=== PATIENT | female | born 1945 | race Caucasian/White ===

== ENCOUNTER 2019-06-16 07:38 | Outpatient (CLI) | payer MEDICARE, BC ==
[~2019-06-16] VITALS: Ht 172.7 cm; Wt 122.7 kg
--- NOTE | ~2019-06-16 | HEMODYNAMI ---
PATIENT:JASS KEY MEDICAL RECORD: [id number] : 41 LOCATION:DCARMEL ADMISSION DATE: 06/16/19 Generatedon:06/16/201911:20 Patient name: JASS KEY Patient #: [id number] SSN: D OB: 1945 Date of study: 06/16/2019 Page: Of Hemodynamic Procedure Report Patient Data Patient Demographics Procedure consent was obtained First Name: JASS Gender: Female Last Name: YESI : 1945 Patient #: [id number] Age: 73 year(s) Race: Unknown Additional ID: [id number] Contact details [address]: [address] [place] [address] State: [place] City: [place] Zip code: [address] Admission Admission Data Admission Date: 06/16/2019 Admission Time: 7:38 Admit Source: Other Height (in.): 68 BSA: 2.33 (m2) Height (cm.): 172.72 BMI: 41.23 (kg/m2) Weight (lbs.): 271.17 Weight (kg.): 123 Lab Results Lab Result Date: 06/16/2019 Lab Result Time: 0:00 Biochemistry Name Units Result Min Max BUN mg/dl 24 --(----)-* 7 18 Creatinine mg/dl 0.8 --(-*--)-- 0.6 1.3 eGFR ml/min 73.51839 *-(----)-- 90 120 NONAFRICAN CBC Name Units Result Min Max Hemoglobin g/dl 13.7 --(*---)-- 13.5 17.5 Procedure Procedure Types Cath Procedure Diagnostic Procedure [facility] w/Coronaries FFR/IVUS FFR Initial Sedation Charges Moderate Sedation up to 30 minutes PCI Procedure Coronary Stent Coronary Stent Initial Procedure Description Procedure Date Procedure Date: 06/16/2019 Procedure Start Time: 10:51 Procedure End Time: 11:16 Procedure Staff Name Function Sacha Wilhelm MD Performing Physician Ananda Quinteros RT Monitor Hemant Collins RN Nurse Michelle Etienne RT Scrub Procedure Data Cath Procedure Fluoroscopy Diagnostic fluoroscopy Total fluoroscopy Time: 4.1 time: 4.1 min min Diagnostic fluoroscopy Total fluoroscopy dose: dose: 1191 mGy 1191 mGy Contrast Material Contrast Material Type Amount (ml) Isovue 300 131 Entry Location Entry Primary Successful Side Size Upsize Upsize Entry Closure Villela ccessful Closure Location (Fr) 1 (Fr) 2 (Fr) Remarks Device Remarks Radial Right 6 Fr Mechanical artery Short Compression Estimated blood loss: 10 ml Diagnostic catheters Device Type Used For End Catheter Placement DIAGNOSTIC [place] 110cm 5 Procedure Fr catheter ([id number]) Procedure Complications No complications Procedure Medications Medication Administration Route Dosage 0.9% NaCl I.V. 100 ml/hr Oxygen etCO2 Nasal cannula 2 l/min Heparin Flush Bag added to field 2 bags (1000units/500ml NS) Lidocaine 2% added to field 20 Radial Cocktail added to field 1 syringe (Verapamil 2mg/Nitro 400mcg/Heparin 1500units) Versed I.V. 2 mg Fentanyl I.V. 100 mcg Versed I.V. 1 mg Radial Cocktail I.A. 1 syringe (Verapamil 2mg/Nitro 400mcg/Heparin 1500units) Heparin Bolus I.V. 4000 units Integrilin (Bolus I.V. 11.3 ml 2mg/ml) Integrilin (Bolus wasted 8.7 ml 2mg/ml) Plavix P.O. 600 mg Hemodynamics Rest BSA: 2.33 (m2) HGB: 13.7 (g/dl) O2 Consumption: Estimated: 223.94 (ml/min) O2 Co nsumption indexed: Estimated:96.11 (ml/min/m) Heart Rate: 84 (bpm) Pressure Samples Time Site Value (mmHg) Purpose Heart Use Rate(bpm) 10:54 LV 78/42,70 Snapshot 111 10:57 AO 173/67(98) Snapshot 96 11:02 AO 175/73(116) Snapshot 97 Snapshots Pre Cath Intra NCS Post Cath Vital Signs Time Heart Resp SPO2 etCO2 NIBP (mmHg) Rhythm Pain Sedation Rate (ipm) (%) (mmHg) Status Level (bpm) 10:32:52 81 28 94 0 181/92(144) NSR 0 (11) 10(A) , No pain 10:37:13 81 21 93 26.9 171/84(128) NSR 0 (11) 10(A) , No pain 10:41:39 85 23 96 35.2 182/89(153) NSR 0 (11) 10(A) , No pain 10:46:03 81 12 91 30.7 150/82(121) NSR 0 (11) 10(A) , No pain 10:50:21 82 21 92 11.2 148/78(101) NSR 0 (11) 10(A) , No pain 10:59:22 72 20 93 34.5 198/108(146) NSR 0 (11) 10(A) , No pain 11:05:08 95 16 95 33 204/110(143) NSR 0 (11) 10(A) , No pain 11:09:46 95 25 96 33 216/106(154) NSR 0 (11) 10(A) , No pain 11:14:29 90 17 95 31.5 216/105(155) NSR 0 (11) 10(A) , No pain Medications Time Medication Route Dose Verified Delivered Reason Not es Effectiveness by by 10:34:12 0.9% NaCl I.V. 100 Hemant Hemant Per physician ml/hr Dennis Collins RN RN 10:34:23 Oxygen etCO2 2 l/min Hemant Hemant for low 02 sats Nasal Lorigan Dennis cannula RN RN 10:34:33 Heparin Flush added 2 bags Hemant Hemant used for Bag to Lorigan Lorigan procedure (1000units/500ml [facility] RN RN NS) 10:34:44 Lidocaine 2% added 20ml Hemant Hemant for local to vial Lorigan Lorigan anesthetic RN RN 10:34:54 Radial Cocktail added 1 Hemant Hemant used for (Verapamil to syringe Lorigan Lorigan procedure 2mg/Nitro field RN RN 400mcg/Heparin 1500units) 10:42:15 Versed I.V. 2 mg Hemant Hemant for sedation Dennis Collins RN RN 10:42:22 Fentanyl I.V. 100 mcg Hemant Hemant for sedation Dennis Collins RN RN 10:45:40 Versed I.V. 1 mg Hemant Hemant for sedation Dennis Collins RN RN 10:53:32 Radial Cocktail I.A. 1 Hemant Sacha for (Verapamil syringe Dennis Wilhelm MD vasodilation 2mg/Nitro RN 400mcg/Heparin 1500units) 11:06:32 Heparin Bolus I.V. 4000 Hemant Hemant for units Dennis Collins anticoagulation RN RN 11:06:50 Integrilin I.V. 11.3ml Hemant Hemant for (Bolus 2mg/ml) Dennis Collins antiplatelet RN RN therapy 11:07:36 Integrilin wasted 8.7ml Hemant Hemant to sharp's (Bolus 2mg/ml) Dennis Collins RN RN 11:15:55 Plavix P.O. 600 mg Hemant Hemant for Pinkychris Collins antiplatelet RN RN therapy Procedure Log Time Note 10:00:30 Procedure Status Elective Heart Cath (OP). 10:03:23 ACC Patient presents with Stable Angina CCS Anginal Class 1--Ordinary physical activity does not cause angina, angina occurs with strenuos, rapid, or prolonged activity.. 10:03:25 Hemant Collins RN sent for patient. Start room use. 10:03:26 Time tracking: Regular hours (M-F 7:00 - 5:00) 10:03:30 Plan of Care:Hemodynamics will remain stable., Cardiac rhythm will remain stable., Comfort level will be maintained., Respiratory function will remain adequate., Patient/ family verbilizes understanding of procedure., Procedure tolerated without complication., Recovers from procedure without complications.. 10:03:52 ACCPatient has been prescribed/administered the following anti-anginal medication within the last 2 weeks: None 10:12:56 Admit Source: Other 10:13:00 Patient Height : 68 inches 10:13:06 Patient Weight : 271.17 lbs 10:14:59 Lab Result : Hemoglobin 13.7 g/dl 10:14:59 Lab Result : eGFR NONAFRICAN 73.10648 ml/min 10:14:59 Lab Result : BUN 24 mg/dl 10:14:59 Lab Result : Creatinine 0.8 mg/dl 10:23:40 Patient received from Pre/Post Procedure Room to CCL 1 Alert and oriented. Tansferred to table in Supine position. 10:23:41 Warm blankets applied, and katherine hugger turned on for patient comfort. 10:23:42 Signed procedure consent form obtained from patient. 10:23:43 Correct patient and procedure confirmed by team. 10:23:43 ECG and BP/O2 sat monitors applied to patient. 10:31:39 Vital chart was started 10:31:40 Baseline sample Acquired. 10:31:44 Rhythm: sinus rhythm 10::46 Full Disclosure recording started 10:31:51 H&P Date Dictated: 06/15/2019 Within 30 days and on chart., H&P Addendum completed by physician on day of procedure. (MUST COMPLETE FOR ALL OUTPATIENTS). 10:32:59 Pre-procedure instructions explained to patient. 10:33:00 Pre-op teaching completed and patient verbalized understanding. 10:33:02 Family in patients room. 10:33:04 Patient NPO since Midnight. 10:33:05 Is the patient allergic to Iodine/contrast media? No. 10:33:08 Is patient on blood thinner?Yes 10:33:11 ACC The patient was administered the following blood thiners within the last 24 hours: None 10:33:13 Patient diabetic? No. 10:33:15 Patient not . Patient is over age 55. 10:33:17 Previous problem with sedation/anesthesia? No ? 10:33:18 Snore? Yes 10:33:19 Sleep apnea? No 10:33:25 Deviated septum? No 10:33:25 Opens mouth fully? Yes 10:33:26 Sticks out tongue? Yes 10:33:38 Airway obstruction? Yes CHRONIC BRONCHITIS 10:33:43 Dentures? Yes PARTIAL IN 10:33:46 Pre procedure: right dorsailis pedis pulse 1+ Palpable, but thready & weak; easily obliterated 10:33:48 Modified Ajay's test Ulnar < 7 seconds 10:33:50 Patient pain scale 0/10 ?. 10:34:00 IV patent on arrival in left forearm with 0.9% NaCl at KVO. 10:34:02 Lab results completed and on chart. 10:34:05 Right Radial & Right Groin area was prepped with chlora-prep and draped in sterile fashion 10:34:07 Alarms reviewed by R. N. 10:34:07 Sharps counted by scrub and verified by R.N. 10:34:11 Use device set Radial Dx or PCI 10:34:12 0.9% NaCl 100 ml/hr I.V. was administered by Hemant Lorigan RN; Per physician; 10:34:13 Tegaderm 4 x 4 (1626W) opened to sterile field. 10:34:13 ACIST Manifold (32008) opened to sterile field. 10:34:14 ACIST Hand Control (22372) opened to sterile field. 10:34:15 ACIST Syringe (34313) opened to sterile field. 10:34:16 Medline Cath Pack ([id number]) opened to sterile field. 10:34:16 Bag Decanter (2002S) opened to sterile field. 10:34:17 MBrace Wrist Support (578126970) opened to sterile field. 10:34:19 EMERALD Guide Wire (017-251) opened to sterile field. 10:34:22 SHEATH 6FR RAIN (6997710) opened to sterile field. 10:34:23 Oxygen 2 l/min etCO2 Nasal cannula was administered by Hemant Collins RN; for low 02 sats; 10:34:33 Heparin Flush Bag (1000units/500ml NS) 2 bags added to field was administered by Hemant Collins RN; used for procedure; 10:34:44 Lidocaine 2% 20ml vial added to field was administered by Hemant Collins RN; for local anesthetic; 10:34:54 Radial Cocktail (Verapamil 2mg/Nitro 400mcg/Heparin 1500units) 1 syringe added to field was administered by Hemant Collins RN; used for procedure; 10:41:21 --------ALL STOP TIME OUT------ 10:41:21 Final Timeout: patient, procedure, and site verified with staff and physician. All members of the team are in agreement. 10:41:24 Right Radial & Right Groin site verified by team. 10:41:29 Fire Safety Assessment: A--An alcohol-based skin anteseptic being used preoperatively., C--Open oxygen or nitrous oxide is being used., D--An ESU, laser, or fiber-optic light is being used. 10:41:32 Physical assessment completed. ASA score P 2 - A patient with mild systemic disease as per Sacha Wilhelm MD. 10:41:37 2) 60-89 Mildly reduced kidney function, and other findings (as for stage 1) point to kidney disease. 10:41:41 Maximum allowable contrast dose (3.7 X eGFR X 0.75)203 ml. 10:41:44 Sedation plan: IV Moderate Sedation Medication:Versed, Fentanyl 10:42:15 Versed 2 mg I.V. was administered by Hemant Collins RN; for sedation; 10:42:22 Fentanyl 100 mcg I.V. was administered by Hemant Collins RN; for sedation; 10:45:40 Versed 1 mg I.V. was administered by Hemant Collins RN; for sedation; 10:51:33 Procedure started. 10:51:38 Local anesthetic to right radial artery with Lidocaine 2% by Sacha Wilhelm MD.INITIAL ACCESS ONLY 10:53:11 A 6 Fr Short sheath was inserted into the Right Radial artery 10:53:27 A DIAGNOSTIC [place] 110cm 5 Fr catheter ([id number]) was advanced over the wire and used for Procedure. 10:53:32 Radial Cocktail (Verapamil 2mg/Nitro 400mcg/Heparin 1500units) 1 syringe I.A. was administered by Sacha Wilhelm MD; for vasodilation; 10:54:43 LV angiography performed. 10:54:44 LV gram done using KEYES 10:54:50 EF : 65 % 10:54:55 Injector settings: Ml/sec: 5, Volume: 15, 10:55:10 RCA angiography performed. 10:56:19 Catheter exchanged over wire. 10:57:00 GUIDE 6FR EBU 3.5 catheter ([id number]) opened to sterile field. 10:57:11 6 Fr EBU 3.5 guide catheter was inserted over the wire 10:57:38 LCA angiography performed. 10:57:58 Use device set [facility] PCI 10:58:00 ACCDominant side:Right 11:01:41 [place] Verrata Plus pressure wire (10939O) opened to sterile field. 11:01:44 INFLATOR Merit BasixCompak (SX1773) opened to sterile field. 11:02:33 FFR/IFR wire advanced. 11:03:24 Wire advanced across lesion. 11:04:39 mLAD lesion measured at 0.62 with IFR 11:05:45 ACC Pre-intervention SIOMARA Flow is 3. 11:05:52 Pre PCI Site: [place] mLAD has 80% stenosis. 11:06:32 Heparin Bolus 4000 units I.V. was administered by Hemant Collins RN; for anticoagulation; 11:06:50 Integrilin (Bolus 2mg/ml) 11.3ml I.V. was administered by Hemant Collins RN; for antiplatelet therapy; 11:07:20 Place stent Inflation Number: 1 A MARIAN RX 2.0 x 8 stent ([id number]) was prepped and advanced across the Mid LAD 80. The stent was deployed at 15 NIKOLE for 0:10 (min:sec) 0. 11:07:36 Integrilin (Bolus 2mg/ml) 8.7ml wasted was administered by Hemant Collins RN; to sharp's; 11:07:53 ACC Post-intervention SIOMARA Flow is 3. 11:08:02 Post PCI Site: [place] mLAD has 0% stenosis. 11:08:09 Stent catheter was removed intact over wire. 11:08:10 Wire removed. 11:08:10 Guide catheter removed. 11:09:31 ZEPHYR REGULAR TR BAND (166013) opened to sterile field. 11:09:46 Sheath removed intact; hemostasis achieved with Mechanical Compression to the Right Radial artery. 11:10:10 Procedure ended.(Physican Out) 11:11:08 Fluoroscopy time 04.10 minutes. 11:11:12 Fluoroscopy dose: 1191 mGy 11:11:12 Flurop Dose total: 1191 11:11:16 Dose Area Product 31861 mGy/cm. 11:11:19 Contrast amount:Isovue 300 131ml. 11:11:21 Maximum allowable dose exceeded? No. 11:11:22 Sharps counted by scrub and verified by R.N. 11:11:24 Insertion/operative site no bleeding no hematoma. 11:11:31 Post Procedure Pulses reassessed and unchanged 11:11:34 [place] band inflated with 10cc of air. 11:11:37 Post-procedure physical assessment completed. ASA score P 2 - A patient with mild systemic disease as per Sacha Wilhelm MD. 11:11:40 Post procedure rhythm: unchanged. 11:11:43 Estimated blood loss: 10 ml 11:11:44 Post procedure instruction explained to patient.Patient verbalizes understanding. 11:11:45 Patient needs reinforcement of post procedure teaching. 11:14:05 Procedure type changed to Cath procedure, Diagnostic procedure, LHC, [facility] w/Coronaries, FFR/IVUS, FFR Initial, Sedation Charges, Moderate Sedation up to 30 minutes, PCI procedure, Coronary Stent, Coronary Stent Initial 11:14:14 Procedure and supply charges have been captured, reviewed, submitted and are correct. 11:14:17 Procedure Complication : No complications 11:15:55 Plavix 600 mg P.O. was administered by Hemant Collins RN; for antiplatelet therapy; 11:16:38 Vital chart was stopped 11:16:38 See physician's report for complete and final results. 11:16:42 Report given to Pre/Post Procedure Room. 11:16:49 Patient transfered to Pre/Post Procedure Room with Stretcher. 11:16:51 Procedure ended. 11:16:51 Full Disclosure recording stopped 11:18:16 ACT drawn and resulted at 275 seconds. (normal therapeutic range 180-240 seconds). 11:19:12 End room use (Document Last) 11:19:24 End room use (Document Last) Intervention Summary Intervention Notes Time ActionType Lesion and Equipment Used Action# Pressure Duration Attributes 11:07:20 Place stent Mid LAD MARIAN RX 2.0 x 1 15 00:10 8 stent ([id number]) Device Usage Item Name Manufacture Quantity Catalog Hospital Part Current Minimal Lot# / Number Charge Number Stock Stock Serial# Code Tegaderm 4 x 4 3M 1 1626W 546802 448012 173833 5 (1626W) ACIST Manifold Acist 1 78730 345797 098795 891849 5 (30944) Medical Systems Inc ACIST Hand Acist 1 22019 168826 923463 303375 5 Control Medical (51668) Systems Inc ACIST Syringe Acist 1 18852 709813 624575 301332 20 (93183) Medical Systems Inc Medline Cath Medline 1 [id number] 399083 27698 463860 5 Pack ([id number]) Bag Decanter Microtek 1 2001S 762613 20709 232682 5 (2001S) Medical Inc. MBrace Wrist Advanced 1 140-0250-00 747758 40259 862934 5 Support Vascular (314676961) Dynamics EMERALD Guide Cardinal 1 192-116 796547 759064 868219 5 Wire (358-576) Health SHEATH 6FR Cardinal 1 7132344 142584 7652425 058132 5 RAIN (4068150) Health DIAGNOSTIC Terumo 1 99-0473 696647 432614 513026 5 [place] 110cm 5 Fr catheter (210895) GUIDE 6FR EBU Medtronic 1 [id number] 431783 71351 348692 3 3.5 catheter ([id number]) [place] 1 10602Q 351329 008116900 208516 5 Verrata Plus pressure wire (51208X) INFLATOR Merit Merit 1 LY8859 793667 082958 558984 15 [employer] Medical (FH1471) MARIAN RX 2.0 x Medtronic 1 [id number] 813881 3725210 132629 5 [id number] 8 stent ([id number]) ZEPHYR REGULAR Cardinal 1 287630 651645 9894095 756451 5 [facility] AdTapsy (030911) Signature Audit Thida Stage Time Signature Unsigned Intra-Procedure 06/16/2019 Hemant 11:14:05 AM Dennis DICKSON Intra-Procedure 06/16/2019 Ananda Quinteros 11:19:24 AM RT(R) Intra-Procedure 06/16/2019 Sacha Wilhelm 11:20:11 AM [facility] [address] [place] [address]
[2019-06-16] MEDS ORDERED: LEVOTHYROXINE150 MCG PO (08:09)
[2019-06-16] MEDS ORDERED: ZOLOFT100 MG PO (08:10)
[2019-06-16] MEDS ORDERED: LOTENSIN40 MG PO (08:10)
[2019-06-16] MEDS ORDERED: SINGULAIR10 MG PO ×2 (08:10→08:13)
[2019-06-16] MEDS ORDERED: ULTRAM50 MG PO (08:11)
[2019-06-16] MEDS ORDERED: TOPAMAX50 MG PO (08:11)
[2019-06-16] MEDS ORDERED: FLUTICASONE PRO16 GM NASAL (08:11)
[2019-06-16] MEDS ORDERED: BAYER CHEWABLE81 MG PO (08:12)
[2019-06-16] MEDS ORDERED: SYNTHROID150 MCG PO (08:12)
[2019-06-16] MEDS ORDERED: OMEPRAZOLE20 M1 PO (08:13)
[2019-06-16] MEDS ORDERED: CLARITIN 10 MG10 MG PO (08:13)
[2019-06-16] MEDS ORDERED: FISH OIL 1,0001 CA1 PO (08:14)
[2019-06-16 08:30] VITALS: BP 168/72; Ht 172.7 cm; Wt 122.7 kg
[2019-06-16 08:31] LABS: BASOPHILS 0.3 % (0-2); EOSINOPHILS 3.1 % (0-7); HEMOGLOBIN 13.7 g/dL (12-16); IMMATURE GRANULOCYTES 0.3 % (0-5); LYMPHOCYTES 37.5 % (15-50); MCH 29.3 pg (26.0-34.0); MCHC 33.4 g/dL (31.0-37.0); MCV 87.8 fL (80.0-100.0); MEAN PLATELET VOLUME 10.7 fL (7.4-10.4); MONOCYTES 5.6 % (2-11); NEUTROPHILS 53.2 % (40-80); PLATELET COUNT 188 10x3/uL (130-400); RBC 4.67 10x6/uL (4.00-5.40); RDW 14.6 % (11.5-14.5); WBC 6.4 10x3/uL (4.8-10.8)
[2019-06-16 08:43] LABS: ANION GAP 16.8 mmol/L (8-16); CALCIUM 9.3 mg/dL (8.5-10.1); CARBON DIOXIDE 20.7 mmol/L (21.0-32.0); CHOL - HDL RATIO 4.7 ratio (2.3-4.1); CREATININE - SERUM 0.8 mg/dL (0.6-1.3); LDL-HDL RATIO 3.3 ratio (1.5-3.5)
[2019-06-16 08:46] LABS: POTASSIUM - SERUM 4.5 mmol/L (3.5-5.1)
--- NOTE | 2019-06-16 11:32 | NUR ---
PT ARRIVED BY STRETCHER. PLACED ON MONITOR. ASSESSMENT COMPLETED. VSS.
[2019-06-16] MEDS ORDERED: PLAVIX75 MG PO (11:43)
--- NOTE | 2019-06-16 11:50 | NUR ---
RIGHT WRIST Z BAND IN PLACE. NO BLEEDING AND HEMATOMA IS STABLE. VSS. CAP REFILL TO RIGHT HAND < 3 SECS. TOLERATING WELL.
--- NOTE | 2019-06-16 12:20 | NUR ---
RIGHT WRIST Z BAND IN PLACE. NO BLEEDING NOTED. HEMATOMA GETTING SOFTER. VSS. RESTING COMFORTABLY AT THIS TIME.
--- NOTE | 2019-06-16 12:50 | NUR ---
RIGHT WRIST Z BAND IN PLACE. NO NEW BLEEDING NOTED. CAP REFILL TO RIGHT FINGERS < 3 SECS. WARM TO TOUCH. VSS. PT RESTING COMFORTABLY AT THIS TIME.
--- NOTE | 2019-06-16 13:38 | OP ---
PATIENT NAME: JASS KEY MEDICAL RECORD: [id number] :41 LOCATION:D.CAT ADMISSION DATE: SURGEON: ERLIN DOE MD DATE OF OPERATION: 06/16/2019 PROCEDURES: 1. PTCA stent LAD. 2. IFR. 3. Left heart catheterization. 4. Selective coronary angiography. 5. Left ventriculogram. INDICATION: Angina, coronary artery disease, abnormal nuclear stress test. PROCEDURE IN DETAIL: After informed consent was obtained and after a detailed description of the risks, benefits as well as alternative therapies, the patient elected to proceed with angiogram and angioplasty. The right radial area was prepped and draped in normal sterile fashion. Right radial artery was cannulated via modified Seldinger technique with placement of 6-Mauritian sheath. All catheters exchanged through this sheath. FINDINGS: Left ventriculogram was performed in standard 30-degree KEYES view, reveals good cardiac wall motion throughout all segments. Overall ejection fraction estimated at 65%. SELECTIVE CORONARY ANGIOGRAPHY: 1. Left main has no significant angiographic disease. 2. Left anterior descending has 80% stenosis in the mid vessel. IFR was abnormal at 0.62. This correlates as well with the defect on nuclear stress testing. 3. Left circumflex has moderate irregularities, but no flow-limiting stenosis. 4. Right coronary has moderate irregularities, but no flow-limiting stenosis. PTCA STENT OF THE LAD: The stent used was 2.0 x 8 mm Stephan taken to 15 atmospheres. Result was 0% residual stenosis. OVERALL IMPRESSION: Successful percutaneous transluminal coronary angioplasty stent of the left anterior descending going from 80% initial stenosis to 0% residual. TRANSINT:[id number] Voice Confirmation ID: [id number] DOCUMENT ID: [id number] ERLIN DOE MD at 1338 CC: [id number] DICTATION DATE: 06/16/19 1112 GIZZARD SKIN REMOVER: 06/16/19 1152 [address] [place] [id number] [place] [id number]
--- NOTE | 2019-06-16 13:40 | NUR ---
PT HEAD OF BED AT 45 DEGREES. SET UP WITH SANDWICH TRAY AND DRINK. DENIES NAUSEA. RIGHT WRIST Z BAND IN PLACE. NO NEW BLEEDING NOTED.
--- NOTE | 2019-06-16 14:05 | NUR ---
2cc OF AIR REMOVED FROM Z BAND. TOLERATING WELL. BRUISING NOTED TO RIGHT WRIST FROM HEMATOMA. NO NEW BLEEDING NOTED. VSS. FAMILY AT BEDSIDE. PT TOLERATED FOOD AND DRINK. DENIES NAUSEA AND PAIN.
--- NOTE | 2019-06-16 14:20 | NUR ---
2cc OF AIR REMOVED FROM Z BAND. NO NEW BLEEDING NOTED. VSS. PT TOLERATING WELL.
--- NOTE | 2019-06-16 14:35 | NUR ---
3cc OF AIR REMOVED FROM Z BAND. NO NEW BLEEDING NOTED. TOLERATING WELL.
--- NOTE | 2019-06-16 14:53 | NUR ---
4cc OF AIR REMOVED FROM Z BAND. NO NEW BLEEDING NOTED. TOLERATING WELL. VSS. FAMILY AT BEDSIDE. CALL LIGHT WITHIN REACH.
--- NOTE | 2019-06-16 15:00 | NUR ---
3cc OF AIR REMOVED FROM Z BAND. TOLERATED WELL. NO NEW BLEEDING NOTED. PIV D/C'D WITH CATH TIP INTACT. TOLERATED WELL. VSS. PT INSTRUCTED TO GET UP AND DRESSED. FAMILY AT BEDSIDE TO ASSIST.
--- NOTE | 2019-06-16 15:05 | NUR ---
Z BAND REMOVED. DRESSING APPLIED. NO NEW BLEEDING NOTED. RIGHT WRIST BRACE IN PLACE.
--- NOTE | 2019-06-16 15:20 | NUR ---
PT TO RESTROOM. VOIDED WITHOUT DIFFICULTY. BACK TO ROOM. DISCUSSED DISCHARGE INSTRUCTIONS WITH PT AND PT'S FAMILY. THEY VOICED UNDERSTANDING. RIGHT WRIST BRUISING NOTED, BUT NO NEW SWELLING/BRUISING. DRESSING C/D/I. RIGHT WRIST BRACE IN PLACE.
--- NOTE | 2019-06-16 15:30 | NUR ---
PT TAKEN OUT TO VEHICLE BY WHEELCHAIR. NO S/S OF DISTRESS NOTED. ALL BELONGINGS AND PAPERWORK IN HAND.
== END 2019-06-16 15:30 | disposition home or self-care (01) ==
LOC: D.CATH 07:38
PROVIDERS: ATTEND Internal Medicine Interventional Cardiology
DX: I25.119 Atherosclerotic heart disease of native coronary artery with unspecified angina pectoris (principal); R94.30 Abnormal result of cardiovascular function study, unspecified
CPT/HCPCS: 93458; 93571; C9600

== ENCOUNTER 2019-12-07 01:16 | Inpatient (IN) | payer MEDICARE, BC ==
[~2019-12-07] VITALS: Ht 172.7 cm; Wt 115.9 kg
[2019-12-07] VITALS (9 sets, daily range): BP systolic 107–179; BP diastolic 40–73; Ht 172.7 cm; Wt 115.9 kg
[~2019-12-07 01:16] MED LIST: BAYER CHEWABLE81 MG PO; CLARITIN 10 MG10 MG PO; FISH OIL 1,0001 CA1 PO; FLUTICASONE PRO16 GM NASAL; LEVOTHYROXINE150 MCG PO; LOTENSIN40 MG PO; OMEPRAZOLE20 M1 PO; PLAVIX75 MG PO; SINGULAIR10 MG PO; SYNTHROID150 MCG PO; TOPAMAX50 MG PO; ULTRAM50 MG PO; ZOLOFT100 MG PO
[2019-12-07 02:10] LABS: BASOPHILS 0.2 % (0-2); EOSINOPHILS 0.5 % (0-7); HEMATOCRIT 38.5 % (36.0-48.0); IMMATURE GRANULOCYTES 0.7 % (0-5); LYMPHOCYTES 13.1 % (15-50); MCHC 31.2 g/dL (31.0-37.0); MEAN PLATELET VOLUME 10.8 fL (7.4-10.4); NEUTROPHILS 79.5 % (40-80); PLATELET COUNT 190 10x3/uL (130-400); RBC 4.14 10x6/uL (4.00-5.40); RDW 15.3 % (11.5-14.5); WBC 10.9 10x3/uL (4.8-10.8)
[2019-12-07 02:19] LABS: APTT 32.5 SECONDS (22.8-39.4); INR 1.3 (0.85-1.17); PROTIME 16.1 SECONDS (11.6-15.0)
[2019-12-07 02:21] LABS: CALC OSMOLALITY 298 mosm/kg (275-300); CALCIUM 8.4 mg/dL (8.5-10.1); CARBON DIOXIDE 22.6 mmol/L (21.0-32.0); CHLORIDE - SERUM 111 mmol/L (98-107); CREATININE - SERUM 1.3 mg/dL (0.6-1.3); GLUCOSE 151 mg/dL (74-106); POTASSIUM - SERUM 4.3 mmol/L (3.5-5.1); SODIUM 146 mmol/L (136-145); UREA NITROGEN 26 mg/dL (7-18); eGFR NON AFRICAN AMERICAN 42 mL/min (90-120)
--- NOTE | 2019-12-07 02:40 | NUR ---
INDWELLING FLORES CATHETER 16FR INSERTED WITH NO DIFFICULTY. STERILE FIELD MAINTAINED. STAT LOCK SECURED TO RIGHT INNER THIGH. 150CC CLEAR, YELLOW URINE AT INSERTING. PT TOLERATED WELL. WILL CONTINUE TO MONITOR.
[2019-12-07 02:42] LABS: ALBUMIN 3.4 g/dL (3.4-5.0); ALKALINE PHOSPHATASE 72 U/L (30-120); ALT (SGPT) 58 U/L (10-68); BILIRUBIN - TOTAL 0.75 mg/dL (0.2-1.3); CKMB 1.3 U/L (0.0-3.6); CREATINE KINASE 49 UL (21-215); PROTEIN - SERUM 6.9 g/dL (6.4-8.2)
[2019-12-07 02:43] LABS: TROPONIN-I 0.103 ng/mL (0.000-0.060)
--- NOTE | 2019-12-07 02:43 | NUR ---
TROPONIN 0.103 EFP INFORMED
[2019-12-07] MEDS ORDERED: BYSTOLIC5 MG PO (03:11)
[2019-12-07] MEDS ORDERED: BETAPACE 80 MG80 MG PO (03:12)
[2019-12-07] MEDS ORDERED: XARELTO20 MG PO (03:13)
--- NOTE | 2019-12-07 04:30 | NUR ---
TO ROOM 39 VIA STRETCHER AND SOON TO BIPAP IV SL TO RT WRIST BED LOW AND LOCKED CALL LIGHT GIVEN TO PT AND TELE APPLIED
--- NOTE | 2019-12-07 05:09 | NUR ---
ADMISSION ASSESSMENT COMPLETED.
[2019-12-07 11:24] LABS: BACTERIA FEW /hpf (NEGATIVE); BILIRUBIN NEGATIVE (NEGATIVE); EPITHELIAL CELLS RARE /hpf (0-5); GLUCOSE NEGATIVE (NEGATIVE); KETONE NEGATIVE (NEGATIVE); NITRITE NEGATIVE (NEGATIVE); RED CELLS - URINE OCC /hpf (0-5); UROBILINOGEN NORMAL (NORMAL); WHITE CELLS - URINE RARE /hpf (NEGATIVE)
--- NOTE | 2019-12-07 13:48 | NUR ---
OT NOTE ADDENDUM: COMPLETED INITIAL EVAL ; RECOMMEND OT SERVICES TO IMPROVE STRNEGTH, ENDURANCE, AND ADLS. LILLIAN SHAHID, OTR/L [phone]
--- NOTE | 2019-12-07 14:55 | NUR ---
PT LYING IN BED. WATCHING TV. FAMILY MEMBER AT BEDSIDE. PT STATES SHE HAS NO FURTHER NEEDS AT THIS TIME. EMPTIED 650ML OUT OF FLORES BAG. BED LOW. CL IN REACH. WILL COTNINUE TO MONITOR.
--- NOTE | 2019-12-07 15:58 | NUR ---
I have reviewed this patient and I concur with the Shift Assessment completed by the Licensed Practical Nurse today this shift.
--- NOTE | 2019-12-07 19:43 | NUR ---
RECEIVED UP IN BED WITH EYES OPEN. ALERT AND ORIENTED X4. UP WITH ASSIST. PT STATES SHE IS ABLE TO AMBULATE WITH OUT ASSIST. IV TO RT AC WITH NS AT TKO. PUMP GOING OFF OFTEN. REQUEST IV BE MOVED. NO EDEMA TO LOWER EXTREMITIES. F/C PATENT WITH CLEAR YELLOW URINE DRAINING TO BEDSIDE DRAINAGE BAG. TELEMETRY IN PLACE. O2@ 7 LITERS PER HF N/C. DENIES ANY NEEDS AT THIS TIME.
--- NOTE | 2019-12-07 21:41 | NUR ---
REQUESTED IV BE MOVED FROM RT AC. 20GA STARTED TO LT HAND X1 ATTEMPT BY MARIO DICKSON. ATTEMPTS X3 BY THIS NURSE UNSUCESSFUL.
--- NOTE | 2019-12-07 21:50 | NUR ---
ASSUMED PT CARE AT THIS TIME. PT AAOX3. TEMP 99.4. PT PLACED ON BIPAP. PT DENIES ANY FURTHER NEEDS AT THIS TIME. WILL CPOC. CL WITHIN REACH.
[2019-12-08] VITALS: BP 126/62
[2019-12-08 04:00] VITALS: BP 135/56
[2019-12-08 05:39] LABS: BASOPHILS 0.3 % (0-2); EOSINOPHILS 2.2 % (0-7); HEMATOCRIT 36.6 % (36.0-48.0); HEMOGLOBIN 11.3 g/dL (12-16); IMMATURE GRANULOCYTES 0.2 % (0-5); LYMPHOCYTES 21.4 % (15-50); MCH 28.8 pg (26.0-34.0); MCHC 30.9 g/dL (31.0-37.0); MCV 93.1 fL (80.0-100.0); MONOCYTES 10.1 % (2-11); NEUTROPHILS 65.8 % (40-80); PLATELET COUNT 200 10x3/uL (130-400); RBC 3.93 10x6/uL (4.00-5.40); RDW 15.2 % (11.5-14.5); WBC 9.6 10x3/uL (4.8-10.8)
[2019-12-08 06:29] LABS: ANION GAP 12.6 mmol/L (8-16); CALCIUM 8.2 mg/dL (8.5-10.1); CARBON DIOXIDE 26.5 mmol/L (21.0-32.0); CREATININE - SERUM 1.2 mg/dL (0.6-1.3)
[2019-12-08 06:49] LABS: POTASSIUM - SERUM 3.1 mmol/L (3.5-5.1)
[2019-12-08 09:41] VITALS: BP 127/55
[2019-12-08 12:47] VITALS: BP 128/64
--- NOTE | 2019-12-08 12:58 | NUR ---
RESTS IN BED WITH CALL LIGHT IN REACH. RESP UL ON 02 4L NC. FLORES CATH INTACT AND PATENT TO GRAVITY. DAUGHTER AT BS. WILL CONT. PLAN OF CARE.
--- NOTE | 2019-12-08 15:25 | NUR ---
OT NOTE: PT DOING BETTER TODAY. BED MOB WITH SBA; ABLE TO AMB TO AND FROM BATHROOM WITH SBA AND NO AD; TOILETING AND HYGIENE WITH SPV. AMB INTO HALLWAY TO IMPROVE FUNCTIONAL ENDURANCE X APPROX 100+ FT WITH USE OF 02. BACK TO BED WITHOUT ASSIST. LILLIAN SHAHID, OTR/L [phone]
--- NOTE | 2019-12-08 19:28 | NUR ---
REPORT RECEIVED, WILL CONT POC. PATIENT IS AAOX4, LYING IN SEMI-FOWLERS POSITION. NO S/S OF DISTRESS OBSERVED, RR EVEN AND UNLABORED ON 6.5L HFNC. F/C DRAINING DARK URINE BY GRAVITY TO RT SIDE OF BED. PIV TO RT AC SL AND LT HAND SL. PATIENT DENIES NEEDS AT THIS TIME. CL IN REACH, BED LOCKED AND LOWERED. WILL CTM.
[2019-12-08 20:00] VITALS: BP 119/87
--- NOTE | 2019-12-08 20:29 | NUR ---
PATIENT FAMILY MEMBER, ABDULKADIR, CALLED FOR UPDATE. PASSCODE VERIFIED, UPDATE GIVEN.
[2019-12-09 00:16] VITALS: BP 143/47
[2019-12-09 05:15] VITALS: BP 125/49
[2019-12-09 05:55] LABS: BASOPHILS 0.3 % (0-2); EOSINOPHILS 2.9 % (0-7); HEMATOCRIT 39.4 % (36.0-48.0); IMMATURE GRANULOCYTES 0.1 % (0-5); LYMPHOCYTES 19.8 % (15-50); MCH 28.8 pg (26.0-34.0); MCHC 30.5 g/dL (31.0-37.0); MCV 94.7 fL (80.0-100.0); MEAN PLATELET VOLUME 11.1 fL (7.4-10.4); MONOCYTES 8.7 % (2-11); NEUTROPHILS 68.2 % (40-80); PLATELET COUNT 211 10x3/uL (130-400); RBC 4.16 10x6/uL (4.00-5.40); RDW 15.2 % (11.5-14.5); WBC 9.7 10x3/uL (4.8-10.8)
[2019-12-09 06:16] LABS: ANION GAP 11.9 mmol/L (8-16); CALCIUM 8.7 mg/dL (8.5-10.1); CARBON DIOXIDE 28.7 mmol/L (21.0-32.0); CREATININE - SERUM 1.2 mg/dL (0.6-1.3); POTASSIUM - SERUM 3.6 mmol/L (3.5-5.1)
--- NOTE | 2019-12-09 06:27 | NUR ---
I have reviewed this patient and I concur with the Shift Assessment completed by the Licensed Practical Nurse today this shift.
[2019-12-09 07:59] VITALS: BP 138/44
--- NOTE | 2019-12-09 08:00 | NUR ---
AM ROUNDS COMPLETED. INTRODUCED MYSELF TO PT PRIMARY RN FOR TODAYS SHIFT. PT IS A&O SITTING UP IN BED RESTING QUIETLY. PT STATES SHE SLEPT GOOD AND IS FEELING GOOD OVERALL. PT STATES SHE FEELS LIKE SHE IS BREATHING BETTER ALSO. PT DOESNT WEAR OXYGEN AT HOME SO I WILL TRY TO WEAN HER DOWN. SHIFT ASSESSMENT COMPLETED. PT HAS FLORES CATHETER, UNSURE OF REASON SO WILL CHECK TO SEE IF SHE MEETS CRITERIA. PT STATES SHE WOULD PREFER NOT TO HAVE ONE. PT DENIES ANY CURRENT PAIN OR NEEDS AT THIS TIME. NO FAMILY PRESENT. CL IN REACH, BED IN LOWEST, SIDE RAILS X2. WILL CPOC.
[2019-12-09 09:09] LABS: ANA REFLEX - DIRECT Negative (Negative)
[2019-12-09 11:42] VITALS: BP 127/49
--- NOTE | 2019-12-09 13:15 | NUR ---
Nutrition Follow-up: Eating well. Noted ORE STORAGE DRIER signed off. Diet: Cardiac PO intake: 75-100% Wt: 255# (12/08); 260# (12/06) Last BM: 12/07 per chart Labs noted: Na 146, Glu 127 Meds noted: Lasix, KDur, Protonix -Continue current diet as tolerated. -Monitor wt. -RD following.
--- NOTE | 2019-12-09 13:50 | NUR ---
OT NOTE: PT COMPLETED SIT TO STAND WITH SBA. PT COMPLETED ADL MOB WITH CGA. PT COMPLETED STAN/DOFF SOCKS WITH SETUP. PT COMPLETED BUE AROM EXS AT EOB WITH SPV. PT DID VERY WELL. [phone] THANK YOU,ISABELLA GURROLA
--- NOTE | 2019-12-09 13:55 | NUR ---
PT UP OOB AMBULATING AGAIN WITH THERAPY. PT STATES SHE IS FEELING MUCH BETTER AND DENIES SOB UPON AMBULATING. PT WANTING TO SHOWER. WRAPPED L.HAND PIV AND D/C R.AC PIV WE ARE NOT USING IT AND IT APPEARED SOILED. CATH TIP FULLY INTACT. REMOVED PTS FLORES CATHETER SHE DOES NOT MEET CRITERIA. CATHETER BULB TIP FULLY INTACT. INSTRUCTED PT ON STRICT I&OS AND PROVIDED PT WITH A TOPHAT TO MEASURE OUTPUT. PT VERBALIZED UNDERSTANDING AND STATES SHE DOESNT HAVE A PROBLEM VOIDING. RAHUL SCHULER AT BEDSIDE AND ASSISTED PT WITH SHOWER. PT BACK IN BED NOW AND WEANED DOWN TO 2LNC PULSE OX 97% NO FAMILY PRESENT. NO CURRENT NEEDS. WILL CTM.
[2019-12-09 15:38] VITALS: BP 138/41
--- NOTE | 2019-12-09 16:50 | NUR ---
ASSISTED PT UP TO BR. PT VOIDED WITHOUT ANY DIFFICULTIES SINCE REMOVAL OF FLORES CATHETER. WILL CONTINUE STRICT INPUT AND OUTPUT MONITERING. PT RESTING QUIETLY AND DENIES ANY CURRENT PAIN OR NEEDS AT THIS TIME. CL IN REACH, BED IN LOWEST, SIDE RAILS X2. WILL CTM.
--- NOTE | 2019-12-09 19:34 | NUR ---
REPORT RECEIVED, WILL CONTINUE POC. PATIENT IS AAOX4, LYING IN SEMI-FOWLERS POSITION. NO S/S OF DISTRESS OBSERVED, RR EVEN AND UNLABORED ON 3L O2 VIA NC. PIV TO LT HAND, SL, ANDREW C/D/I. PATIENT DENIES NEEDS AT THIS TIME. CL IN REACH, BED LOCKED AND LOWERED. WILL CTM.
[2019-12-09 20:18] VITALS: BP 120/49
[2019-12-10] VITALS (7 sets, daily range): BP systolic 117–145; BP diastolic 47–70
--- NOTE | 2019-12-10 04:28 | NUR ---
RESTING WITH EYES CLOSED, RESPERATIONS EVEN, NO S/S DISTRESS NOTED.
[2019-12-10 04:52] LABS: BASOPHILS 0.2 % (0-2); EOSINOPHILS 5.1 % (0-7); HEMOGLOBIN 12.1 g/dL (12-16); IMMATURE GRANULOCYTES 0.3 % (0-5); LYMPHOCYTES 20.6 % (15-50); MCH 28.7 pg (26.0-34.0); MEAN PLATELET VOLUME 10.5 fL (7.4-10.4); NEUTROPHILS 64.8 % (40-80); PLATELET COUNT 217 10x3/uL (130-400); RBC 4.22 10x6/uL (4.00-5.40); RDW 14.8 % (11.5-14.5); WBC 8.7 10x3/uL (4.8-10.8)
[2019-12-10 05:00] LABS: MCV 92.4 fL (80.0-100.0)
[2019-12-10 05:11] LABS: ANION GAP 10.2 mmol/L (8-16); CALCIUM 8.8 mg/dL (8.5-10.1); CARBON DIOXIDE 30.4 mmol/L (21.0-32.0); CREATININE - SERUM 1.3 mg/dL (0.6-1.3); POTASSIUM - SERUM 3.6 mmol/L (3.5-5.1)
--- NOTE | 2019-12-10 07:29 | NUR ---
RECIEVED REPORT. PATIENT IS AWAKE AND ALERT AND DENIES ANY NEEDS AT THIS TIME.
--- NOTE | 2019-12-10 13:28 | NUR ---
OT NOTE: PT REPORTS THAT SHE IS FEELING BETTER; SHE IS ON 3L O2; ABLE TO AMB WITHIN ROOM AND TO BATHROOM WITHOUT ASSIST WITH GOOD BALANCE. PERFORMING DRESSING, GROOMING, AND TOILETING WITH SPV/MOD I LILLIAN SHAHID, OTR/L [phone]
--- NOTE | 2019-12-10 14:38 | NUR ---
PATIENT IS RESTING QUIETLY AT THIS TIME. HER FAMILY IS AT BEDSIDE. DENIES ANY NEEDS AT THIS TIME.
--- NOTE | 2019-12-10 14:43 | NUR ---
OT NOTE: PT DOING VERY WELL TODAY. PT COMPLETED SIT TO STAND WITH SPV. PT COMPLETED ADL MOB WITH SPV. PT COMPLETED STAN/DOFF SOCKS WITH SPV.PT COMPLETED FACE HYGIENE WITH SET UP. [phone] THANK YOU,ISABELLA GURROLA
--- NOTE | 2019-12-10 16:31 | MORECARE ---
CASE MANAGEMENT DISCHARGE SUMMARY PATIENT: JASS KEY UNIT: [id number] ADM DATE: 12/07/19 AGE: 74 : 43 SEX: F ROOM/BED: D.3 AUTHOR: DELTA CAGE PHYSICIAN: REFERRING PHYSICIAN: SALVADOR MASTERS MD DATE OF SERVICE: 12/10/19 Discharge Plan Patient Name: JASS KEY Facility: [facility]:[place] : 1945 Planned Disposition: Home Anticipated Discharge Date: 12/11/19 Discharge Date: Expected LOS: 4 Initial Reviewer: [email or web address] Initial Review Date: 12/07/2019 Generated: 12/10/19 5:30 pm Patient Name: JASS KEY Page 74599 at 1631 All edits/amendments must be made on the electronic document DICTATION DATE: 12/10/19 163 MANAGER BUSINESS SYSTEMS: DENISE 12/10/19 1630 RPT#: [id number] DC DATE: STATUS: ADM IN [facility] [address] [place] [address] END OF REPORT
--- NOTE | 2019-12-10 16:38 | MORECARE ---
CASE MANAGEMENT DISCHARGE SUMMARY PATIENT: JASS KEY UNIT: [id number] ADM DATE: 12/07/19 AGE: 74 : 43 SEX: F ROOM/BED: D.2113 AUTHOR: DELTA CAGE PHYSICIAN: REFERRING PHYSICIAN: SALVADOR MASTERS MD DATE OF SERVICE: 12/10/19 Discharge Plan Patient Name: JASS KEY [facility] [facility] 1945 Planned Disposition: Home Anticipated Discharge Date: 12/11/19 Discharge Date: Expected LOS: 4 Initial Reviewer: [email or web address] Initial Review Date: 12/07/2019 Generated: 12/10/19 5:38 pm External Providers [facility] Next Contact Date: 12/10/2019 Service Request Date: Service Type: Resolution: Reviewer: Comments: Last DP export: 12/10/19 3:31 p Patient Name: JASS KEY Page 99432 at 1638 All edits/amendments must be made on the electronic document DICTATION DATE: 12/10/191637 DIRECTOR WORKFORCE MANAGEMENT: DENISE 12/10/191637 RPT#: [id number] MA DATE: STATUS: ADM [facility] [address] [place] [address] END OF REPORT
--- NOTE | 2019-12-10 16:49 | MORECARE ---
CASE MANAGEMENT DISCHARGE SUMMARY PATIENT: JASS KEY UNIT: [id number] ADM DATE: 12/07/19 AGE: 74 : 43 SEX: F ROOM/BED: D.4316 AUTHOR: NILES,DOC PHYSICIAN: REFERRING PHYSICIAN: SALVADOR MASTERS MD DATE OF SERVICE: 12/10/19 Discharge Plan Patient Name: JASS KEY Facility: [facility]:[place] : 1945 Planned Disposition: Home Anticipated Discharge Date: 12/11/19 Discharge Date: Expected LOS: 4 Initial Reviewer: [email or web address] Initial Review Date: 12/07/2019 Generated: 12/10/19 5:48 pm Comments DCP- Discharge Planning Updated by [id number]: John Meza on 12/10/19 3:[address] Patient Name: JASS KEY Admission Status: ER Accout number: [id number] Admission Date: 12-07-2019 : 1945 Admission Diagnosis: Attending: SALVADOR MASTERS Current LOS: 3 Anticipated DC Date: 12-11-2019 Planned Disposition: Home Primary Insurance: MEDICARE A & B Discharge Planning Comments: CM RECEIVED ORDER FOR OXYGEN TESTING AND NEBULIZER WITH MEDICATIONS FOR NEBULIZER. CM MET WITH PT IN ROOM TO DISCUSS DISCHARGE PLANNING AND NEEDS. PT REPORTS LIVING AT HOME INDEPENDENTLY AND ALONE; SHE PLANS TO HAVE HER DAUGHTER AND SON IN LAW STAY WITH HER FOR A FEW DAYS POST DISCHARGE TO ASSIST IF NEEDED. PT HAS BEDSIDE COMMODE AND WALKER WITH NO MEDICAL EQUIPMENT PROVIDER PREFERENCE. PT HAS NO OUTSIDE SERVICES ASSISTING IN THE HOME. CM DISCUSSED AVAILABILITY OF HOME HEALTH, REHAB SERVICES AND MEDICAL EQUIPMENT. PT DENIES DISCHARGE NEEDS OTHER THAN OXYGEN AND NEBULIZER, SHE HAS NO PREFERENCE ON PROVIDER AFTER REVIEWING AVAILABLE PROVIDERS. CHOICE SIGNED FOR NO PREFERENCE ON MEDICAL EQUIPMENT PROVIDER. PT REPORTS HER DAUGHTER WILL PICK HER UP FOR DISCHARGE HOME. IMPORTANT MESSAGE FROM MEDICARE PROVIDED AND EXPLAINED. CM CALLED [facility], , SPOKE TO MAIA WHO TOOK OXYGEN, NEB AND NEB MEDICATION ORDER. CM FAXED OXYGEN AND NEBULIZER ORDERS TO [facility] AT [phone]. [facility] TO ARRANGE PORTABLE OXYGEN TO HOPITAL ROOM AND HOME OXYGEN AND NEBULIZER FOR HOME DELIVERY AFTER PT ARRIVES HOME. General Technician: John Derrick DCPIA - Discharge Planning Initial Assessment Updated by [id number]: John Meza on 12/10/19 4:43 pm * Is the patient Alert and Oriented? Yes * How many steps to enter\exit or inside your home? NONE * PCP DR. RAGLAND * Pharmacy [facility] IN [place] * Preadmission Environment Home Alone * ADLs Independent * Equipment Bedside Commode Walker * Other Equipment NO MEDICAL EQUIPMENT PROVIDER PREFERENCE * List name and contact numbers for known caregivers / representatives who currently or will assist patient after discharge: ABDULKADIR ALFARO, DTR, * Verbal permission to speak to the caregivers and representatives has been obtained from the patient. N/A * Community resources currently utilized None * Please name any agencies selected above. NONE * Additional services required to return to the preadmission environment? No * Can the patient safely return to the preadmission environment? Yes * Has this patient been hospitalized within the prior 30 days at any hospital? No Coverage Notice Reviewer: [id number] - John Meza Notice Issued Date-Time: 12/10/2019 14:45 Notice Type: IM Discharge Notice Notice Delivered To: Patient Relationship to Patient: Financial Examiner Name: Delivery Method: HAND - Hand Delivered Faustina Days: Prior Verbal Notification: Recipient Understood Notice: Yes Recipient Signature: Yes Med Rec Note Co-signed by Attending: Coverage Notice Comment: Last DP export: 12/10/19 3:38 p Patient Name: JASS KEY Page 17205 at 1649 All edits/amendments must be made on the electronic document DICTATION DATE: 12/10/191647 AUTOMATIC MACHINES SUPERVISOR: DENISE 12/10/191647 RPT#: [id number] DC DATE: STATUS: ADM IN [facility] [address] [place] [address] END OF REPORT
[2019-12-10 18:08] LABS: IMMUNOGLOBULIN E 25 IU/mL (6-495)
--- NOTE | 2019-12-10 21:16 | NUR ---
EVENING ROUNDS COMPLETED. VSS, AAOX4, NO S/S OF RT DISTRESS. 93% ON 3L HF NC. BIPAP @ BEDSIDE. DAUGHTER @BEDSIDE. PT DENIES ANY FURTHER NEEDS AT THID TIME. WILL CPOC. CL WITHIN REACH, BED IN LOW, SR UP X2.
[2019-12-11 00:12] VITALS: BP 120/51
[2019-12-11 04:30] VITALS: BP 114/54
[2019-12-11 04:44] LABS: BASOPHILS 0.3 % (0-2); EOSINOPHILS 5.2 % (0-7); HEMATOCRIT 39.7 % (36.0-48.0); HEMOGLOBIN 12.4 g/dL (12-16); IMMATURE GRANULOCYTES 0.2 % (0-5); MCH 28.6 pg (26.0-34.0); MCHC 31.2 g/dL (31.0-37.0); MCV 91.7 fL (80.0-100.0); MEAN PLATELET VOLUME 10.8 fL (7.4-10.4); MONOCYTES 9.3 % (2-11); PLATELET COUNT 219 10x3/uL (130-400); RBC 4.33 10x6/uL (4.00-5.40); RDW 14.4 % (11.5-14.5); WBC 8.9 10x3/uL (4.8-10.8)
[2019-12-11 04:58] LABS: ANION GAP 12.6 mmol/L (8-16); CALCIUM 8.9 mg/dL (8.5-10.1); CARBON DIOXIDE 30.9 mmol/L (21.0-32.0); CREATININE - SERUM 1.3 mg/dL (0.6-1.3); POTASSIUM - SERUM 3.5 mmol/L (3.5-5.1)
--- NOTE | 2019-12-11 07:15 | NUR ---
RECEIVED PT IN BED AAOX4 RESP UNLABORED SKIN W/D COLOR WNL DENIES ANY NEEDS OR PAIN AT THIS TIME NAD NOTED
--- NOTE | 2019-12-11 10:17 | NUR ---
OT NOTE: PT REPORTING FEELING BETTER; HOPING TO GET TO GO HOME SOON; PT AMB IN ROOM WITHOUT AD; PERFORMING ALL ADLS WITH SPV/INDEP. REMAINS ON BUT NO SOB NOTED DURING FUNCTIONAL TASKS. WILL DC PT ON THIS DATE. RECOMMEND PT RETURN HOME WITH SERVICES SHE LIVES ALONE. LILLIAN SHAHID, OTR/L [phone]
[2019-12-11 10:19] VITALS: BP 128/67
[2019-12-11] MEDS ORDERED: ATROVENT 0.02%2.5 ML UPD ×2 (10:52→17:55)
[2019-12-11] MEDS ORDERED: K-TAB10 MEQ PO (10:55)
[2019-12-11] MEDS ORDERED: LASIX20 MG PO (10:55)
--- NOTE | 2019-12-11 13:12 | MORECARE ---
CASE MANAGEMENT DISCHARGE SUMMARY PATIENT: JASS KEY UNIT: [id number] ADM DATE: 12/07/19 AGE: 74 : 43 SEX: F ROOM/BED: D.5326 AUTHOR: NILES,DOC PHYSICIAN: REFERRING PHYSICIAN: SALVADOR MASTERS MD DATE OF SERVICE: 12/11/19 Discharge Plan Patient Name: JASS KEY Facility: [facility]:[place] : 1945 Planned Disposition: Home Anticipated Discharge Date: 12/11/19 Discharge Date: Expected LOS: 4 Initial Reviewer: [email or web address] Initial Review Date: 12/07/2019 Generated: 12/11/19 2:12 pm Comments DCP- Discharge Planning Updated by [email or web address]: John Meza on 12/10/19 3:[address] Patient Name: JASS KEY Admission Status: ER Accout number: [id number] Admission Date: 12-07-2019 : 1945 Admission Diagnosis: Attending: SALVADOR MASTERS Current LOS: 3 Anticipated DC Date: 12-11-2019 Planned Disposition: Home Primary Insurance: MEDICARE A & B Discharge Planning Comments: CM RECEIVED ORDER FOR OXYGEN TESTING AND NEBULIZER WITH MEDICATIONS FOR NEBULIZER. CM MET WITH PT IN ROOM TO DISCUSS DISCHARGE PLANNING AND NEEDS. PT REPORTS LIVING AT HOME INDEPENDENTLY AND ALONE; SHE PLANS TO HAVE HER DAUGHTER AND SON IN LAW STAY WITH HER FOR A FEW DAYS POST DISCHARGE TO ASSIST IF NEEDED. PT HAS BEDSIDE COMMODE AND WALKER WITH NO MEDICAL EQUIPMENT PROVIDER PREFERENCE. PT HAS NO OUTSIDE SERVICES ASSISTING IN THE HOME. CM DISCUSSED AVAILABILITY OF HOME HEALTH, REHAB SERVICES AND MEDICAL EQUIPMENT. PT DENIES DISCHARGE NEEDS OTHER THAN OXYGEN AND NEBULIZER, SHE HAS NO PREFERENCE ON PROVIDER AFTER REVIEWING AVAILABLE PROVIDERS. CHOICE SIGNED FOR NO PREFERENCE ON MEDICAL EQUIPMENT PROVIDER. PT REPORTS HER DAUGHTER WILL PICK HER UP FOR DISCHARGE HOME. IMPORTANT MESSAGE FROM MEDICARE PROVIDED AND EXPLAINED. CM CALLED [facility], , SPOKE TO MAIA WHO TOOK OXYGEN, NEB AND NEB MEDICATION ORDER. CM FAXED OXYGEN AND NEBULIZER ORDERS TO [facility] AT [phone]. [facility] TO ARRANGE PORTABLE OXYGEN TO HOPITAL ROOM AND HOME OXYGEN AND NEBULIZER FOR HOME DELIVERY AFTER PT ARRIVES HOME. University Tutor: John Derrick DCPIA - Discharge Planning Initial Assessment Updated by [id number]: John Meza on 12/10/19 4:43 pm * Is the patient Alert and Oriented? Yes * How many steps to enter\exit or inside your home? NONE * PCP DR. RAGLAND * Pharmacy [facility] IN [place] * Preadmission Environment Home Alone * ADLs Independent * Equipment Bedside Commode Walker * Other Equipment NO MEDICAL EQUIPMENT PROVIDER PREFERENCE * List name and contact numbers for known caregivers / representatives who currently or will assist patient after discharge: ABDULKADIR ALFARO, DTR, * Verbal permission to speak to the caregivers and representatives has been obtained from the patient. N/A * Community resources currently utilized None * Please name any agencies selected above. NONE * Additional services required to return to the preadmission environment? No * Can the patient safely return to the preadmission environment? Yes * Has this patient been hospitalized within the prior 30 days at any hospital? No Coverage Notice Reviewer: [email or web address] Meza Notice Issued Date-Time: 12/10/2019 14:45 Notice Type: IM Discharge Notice Notice Delivered To: Patient Relationship to Patient: Credit Charge Authorizer Name: Delivery Method: HAND - Hand Delivered Faustina Days: Prior Verbal Notification: Recipient Understood Notice: Yes Recipient Signature: Yes Med Rec Note Co-signed by Attending: Coverage Notice Comment: Reviewer: LOBO Meza Notice Issued Date-Time: 12/10/2019 14:45 Notice Type: Patient Choice Letter Notice Delivered To: Patient Relationship to Patient: Credit Charge Authorizer Name: Delivery Method: HAND - Hand Delivered Faustina Days: Prior Verbal Notification: Recipient Understood Notice: Yes Recipient Signature: Yes Med Rec Note Co-signed by Attending: Coverage Notice Comment: NO MEDICAL EQUIPMENT PROVIDER PREFERENCE Last DP export: 12/10/19 3:48 p Patient Name: JASS KEY Page 22016 at 1312 All edits/amendments must be made on the electronic document DICTATION DATE: 12/11/191311 SCHEDULE ANNOUNCER: DENISE 12/11/191311 RPT#: [id number] DC DATE: STATUS: ADM IN [facility] [address] [place] [address] END OF REPORT
[2019-12-11] MEDS ORDERED: XARELTO20 MG PO (13:18)
--- NOTE | 2019-12-11 14:00 | NUR ---
REVIEWED DISCHARGE INSTRUCTIONS WITH PT AND DAUGHTER BOTH STATE UNDERSTANDING COPY GIVEN DCD SALINE LOCK TO RT HAND WITH IV CATHER INTACT SITE FREE OF REDNESS OR EDEMA PT DISCHARGED HOME WITH ALL PERSONAL BELONGINGS LEFT UNIT IN STABLE CONDITION VIA W/C
[2019-12-12 16:08] LABS: FUNGAL - ASP FLAVUS Negative (Neg:<1:1); FUNGAL - ASP NIGER Negative (Neg:<1:1); FUNGAL - ASPER FUMIGATUS Negative (Neg:<1:1)
== END 2019-12-11 14:00 | disposition home or self-care (01) | DRG 177 ==
LOC: D.ER 01:16 → D.M2 03:29
PROVIDERS: Emergency Medicine; Family Medicine; Internal Medicine Pulmonary Disease; ADMIT Internal Medicine Nephrology; ATTEND Internal Medicine Nephrology
DX: J69.0 Pneumonitis due to inhalation of food and vomit (principal); J96.01 Acute respiratory failure with hypoxia; I24.8 Other forms of acute ischemic heart disease; J44.1 Chronic obstructive pulmonary disease with (acute) exacerbation; E87.0 Hyperosmolality and hypernatremia; E03.9 Hypothyroidism, unspecified; I11.0 Hypertensive heart disease with heart failure; I50.9 Heart failure, unspecified; K21.9 Gastro-esophageal reflux disease without esophagitis; I48.91 Unspecified atrial fibrillation

== ENCOUNTER 2020-01-05 11:29 | Outpatient (CLI) | payer MEDICARE, BC ==
[~2020-01-05] VITALS: Ht 172.7 cm; Wt 118.2 kg
--- NOTE | ~2020-01-05 | HEMODYNAMI ---
PATIENT:JASS KEY MEDICAL RECORD: [id number] : 41 LOCATION:[facility] ADMISSION DATE: 01/05/20 Generatedon:01/05/202013:59 Patient name: JASS KEY Patient #: [id number] SSN: [id number] : 1945 Date of study: 01/05/2020 Page: Of Hemodynamic Procedure Report Patient Data Patient Demographics First Name: JASS Gender: Female Last Name: YESI : 1945 Patient #: [id number] Age: 74 year(s) Race: SSN: [id number] Ethnicity: or Additional ID: [id number] Contact details Address: [address] [place] [address] State: [place] City: [place] Zip code: [address] Admission Admission Data Admission Date: 01/05/2020 Admission Time: 11:29 Arrival Date: 01/05/2020 Arrival Time: 0:00 Admit Source: Other Lab Results Lab Result Date: 01/05/2020 Lab Result Time: 0:00 Biochemistry Name Units Result Min Max BUN mg/dl 26 --(----)-* 7 18 Creatinine mg/dl 1 --(--*-)-- 0.6 1.3 eGFR ml/min 57 *-(----)-- 90 120 NONAFRICAN CBC Name Units Result Min Max Hemoglobin g/dl 12.2 *-(----)-- 13.5 17.5 Procedure Procedure Types Cath Procedure Diagnostic Procedure LHC LH w/Coronaries Sedation Charges Moderate Sedation up to 15 minutes Procedure Description Procedure Date Procedure Date: 01/05/2020 Procedure Start Time: 13:48 Procedure End Time: 13:55 Procedure Staff Name Function Marlo Hodge MD Performing Physician Brandy Shankar RT Monitor Michelle Etienne RT Scrub Ramona Ricci RN Nurse Procedure Data Cath Procedure Fluoroscopy Diagnostic fluoroscopy Total fluoroscopy Time: 1.5 time: 1.5 min min Diagnostic fluoroscopy Total fluoroscopy dose: 391 dose: 391 mGy mGy Contrast Material Contrast Material Type Amount (ml) Isovue 300 63 Entry Location Entry Primary Successful Side Size Upsize Upsize Entry Closure Succes sful Closure Location (Fr) 1 (Fr) 2 (Fr) Remarks Device Remarks Femoral Right 5 Fr Exoseal artery Estimated blood loss: 5 ml Diagnostic catheters Device Type Used For End Catheter Placement MULTIPACK JL 4.0 5Fr Left Coronary catheter Angiography MULTIPACK 3DRC 5Fr Right Coronary catheter Angiography MULTIPACK Pigtail 5 Fr LV Angiography catheter Procedure Complications No complications Procedure Medications Medication Administration Route Dosage 0.9% NaCl I.V. 100 ml/hr Oxygen etCO2 Nasal cannula 2 l/min Lidocaine 2% added to field 20 Heparin Flush Bag added to field 2 bags (1000units/500ml NS) Versed I.V. 2 mg Fentanyl I.V. 50 mcg Hemodynamics Rest HGB: 12.2 (g/dl) Heart Rate: 77 (bpm) Pressure Samples Time Site Value (mmHg) Purpose Heart Use Rate(bpm) 13:53 LV 200/18,30 Snapshot 87 Gradients Valve Time Site Site Mean SEP/DFP Peak To Heart Use 1 2 (mmHg) (sec/min) Peak Rate (mmHg) (bpm) Aortic 13:54 LV AO 57 Snapshots Pre Cath Intra NCS Post Cath Vital Signs Time Heart Resp SPO2 etCO2 NIBP (mmHg) Rhythm Pain Sedation Rate (ipm) (%) (mmHg) Status Level (bpm) 13:35:59 77 18 98 32.5 Measuring NSR 0 (11) 10(A) , No pain 13:37:08 74 19 97 31.7 188/85(144) NSR 0 (11) 10(A) , No pain 13:42:03 75 20 96 31.7 195/83(148) NSR 0 (11) 10(A) , No pain 13:47:00 76 21 98 32.5 197/84(144) NSR 0 (11) 10(A) , No pain 13:51:57 66 15 98 31.7 194/93(143) NSR 0 (11) 10(A) , No pain 13:56:50 80 23 91 28.7 214/98(148) NSR 0 (11) 10(A) , No pain Medications Time Medication Route Dose Verified Delivered Reason Notes Eff ectiveness by by 13:37:29 0.9% NaCl I.V. 100 Marlo Ramona used for ml/hr Kelford Radhames procedure RN 13:37:36 Oxygen etCO2 2 Marlo Ramona used for Nasal l/min [facility] procedure cannula RN 13:37:42 Lidocaine 2% added 20ml Marlo Sellers for local to vial [facility] anesthetic field MD [place] 13:37:49 Heparin Flush added 2 Marlo Marlo used for Bag to bags [facility] procedure (1000units/500ml field MD [place] NS) 13:38:05 Versed I.V. 2 mg Marlo Ramona for [facility] sedation RN 13:38:10 Fentanyl I.V. 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 Start room use. 13:29:22 Lab Result : Hemoglobin 12.2 g/dl 13:29:22 Lab Result : eGFR NONAFRICAN 57 ml/min 13:29:22 Lab Result : BUN 26 mg/dl 13:29:22 Lab Result : Creatinine 1 mg/dl 13:29:27 Procedure Status Elective Heart Cath (OP). 13:29:41 Time tracking: Regular hours (M-F 7:00 - 5:00) 13:29:46 Plan of Care:Hemodynamics will remain stable., Cardiac rhythm will remain stable., Comfort level will be maintained., Respiratory function will remain adequate., Patient/ family verbilizes understanding of procedure., Procedure tolerated without complication., Recovers from procedure without complications.. 13:29:53 Patient received from Pre/Post Procedure Room to [facility] 2 Alert and oriented. Tansferred to table in Supine position. 13:30:00 Warm blankets applied, and aktherine hugger turned on for patient comfort. 13:30:07 Correct patient and procedure confirmed by team. 13:30:08 ECG and BP/O2 sat monitors applied to patient. 13:30:09 Vital chart was started 13:35:23 Baseline sample Acquired. 13:35:32 Rhythm: sinus tachycardia 13:35:34 Full Disclosure recording started 13:35:38 H&P Date Dictated: 01/05/2020 Within 30 days and on chart., H&P Addendum completed by physician on day of procedure. (MUST COMPLETE FOR ALL OUTPATIENTS). 13:35:39 Pre-procedure instructions explained to patient. 13:35:40 Pre-op teaching completed and patient verbalized understanding. 13:35:43 Family unavailable. 13:35:45 Patient NPO since Midnight. 13:35:48 Is the patient allergic to Iodine/contrast media? No. 13:35:49 Was the patient premedicated? Yes 13:35:50 Is patient on blood thinner?Yes 13:36:17 patient states last dose of xarelto on 01/03/2020 13:36:21 Patient diabetic? No. 13:36:32 Previous problem with sedation/anesthesia? No ? 13:36:34 Snore? Yes 13:36:43 Sleep apnea? Yes 13:36:45 Deviated septum? No 13:36:46 Opens mouth fully? Yes 13:36:46 Sticks out tongue? Yes 13:36:55 Airway obstruction? Yes asmtha 13:36:59 Dentures? Yes in tight 13:37:02 Pre procedure: right dorsailis pedis pulse 2+ Normal; easily identifiable; not easily obliterated 13:37:05 Pre procedure: left dorsailis pedis pulse 2+ Normal; easily identifiable; not easily obliterated 13:37:07 Patient pain scale 0/10 ?. 13:37:13 IV patent on arrival in right forearm with 0.9% NaCl at [facility]. 13:37:15 Lab results completed and on chart. 13:37:20 Risk of Mortality: 0.1 13:37:23 Risk of blood transfusion: 0.8 13:37:27 Risk of RAYA: 3.6 13:37:29 0.9% NaCl 100 ml/hr I.V. was administered by Ramona Ricci RN; used for procedure; Verbal order read back and verified. 13:37:33 Right groin area was prepped with chlora-prep and draped in sterile fashion 13:37:33 Alarms reviewed by R. N. 13:37:34 Sharps counted by scrub and verified by R.N. 13:37:35 Physician arrived 13:37:36 Oxygen 2 l/min etCO2 Nasal cannula was administered by Ramona Ricci RN; used for procedure; Verbal order read back and verified. 13:37:36 --------ALL STOP TIME OUT------ 13:37:41 Final Timeout: patient, procedure, and site verified with staff and physician. All members of the team are in agreement. 13:37:42 Lidocaine 2% 20ml vial added to field was administered by Marlo Hodge MD; for local anesthetic; Verbal order read back and verified. 13:37:47 Right groin site verified by team. 13:37:49 Heparin Flush Bag (1000units/500ml NS) 2 bags added to field was administered by Marlo Hodge MD; used for procedure; Verbal order read back and verified. 13:37:51 Fire Safety Assessment: A--An alcohol-based skin anteseptic being used preoperatively., C--Open oxygen or nitrous oxide is being used., D--An ESU, laser, or fiber-optic light is being used. 13:37:54 Physical assessment completed. ASA score P 2 - A patient with mild systemic disease as per Marlo Hodge MD. 13:38:05 Versed 2 mg I.V. was administered by Ramona Ricci RN; for sedation; Verbal order read back and verified. 13:38:10 Fentanyl 50 mcg I.V. was administered by Ramona Ricci RN; for sedation; Verbal order read back and verified. 13:40:07 3a) 45-59 Moderately reduced kidney function. 13:41:24 Maximum allowable contrast dose (3.7 X eGFR X 0.75)158 ml. 13:41:28 Sedation plan: IV Moderate Sedation Medication:Versed, Fentanyl 13:41:32 Use device set Femoral Dx 13:41:33 ACIST Syringe (22410) opened to sterile field. 13:41:33 Bag Decanter () opened to sterile field. 13:41:33 Medline Cath Pack ([id number]) opened to sterile field. 13:41:35 ACIST Hand Control (86162) opened to sterile field. 13:41:35 ACIST Manifold (59112) opened to sterile field. 13:41:35 DIAGNOSTIC Multipack 5Fr catheter set (NI4104) opened to sterile field. 13:41:36 Tegaderm 4 x 4 (1626W) opened to sterile field. 13:41:37 SHEATH 5FR [place] (XTV807) opened to sterile field. 13:41:38 EMERALD Guide Wire (018-121) opened to sterile field. 13:45:50 Zero performed for pressure channel P1 13:48:32 Procedure started. 13:48:35 Local anesthetic to right femoral artery with Lidocaine 2% by Marlo Hodge MD.INITIAL ACCESS ONLY 13:48:44 A 5 Fr sheath was inserted into the Right Femoral artery 13:49:00 A MULTIPACK JL 4.0 5Fr catheter was advanced over the wire and used for Left Coronary Angiography. 13:51:02 LCA angiography performed. 13:51:05 Injector settings: Ml/sec: 3, Volume: 6, 13:51:39 Catheter removed. 13:51:45 A MULTIPACK 3DRC 5Fr catheter was advanced over the wire and used for Right Coronary Angiography. 13:51:59 RCA angiography performed. 13:52:03 Injector settings: Ml/sec: 3, Volume: 6+, 13:52:25 Catheter removed. 13:52:34 A MULTIPACK Pigtail 5 Fr catheter was advanced over the wire and used for LV Angiography. 13:52:47 ACCDominant side:Right 13:53:41 LV hemodynamics recorded. 13:53:42 LV gram done using KEYES 13:53:44 Injector settings: Ml/sec: 5, Volume: 15, 13:53:55 EF : 55 % 13:53:57 Catheter removed. 13:53:59 EXOSEAL 5Fr (EX500) opened to sterile field. 13:54:08 Sheath removed intact; hemostasis achieved with Exoseal to the Right Femoral artery. 13:54:10 Procedure ended.(Physican Out) 13:54:48 Fluoroscopy time 01.50 minutes. 13:54:52 Fluoroscopy dose: 391 mGy 13:54:52 Flurop Dose total: 391 13:54:57 Dose Area Product 29230 mGy/cm. 13:55:02 Contrast amount:Isovue 300 63ml. 13:55:04 Maximum allowable dose exceeded? No. 13:55:05 Sharps counted by scrub and verified by R.N. 13:55:06 Insertion/operative site no bleeding no hematoma. 13:55:10 Post-op/insertion site Right Femoral artery dressed using a 4 x 4 and Tegaderm. 13:55:11 Post Procedure Pulses reassessed and unchanged 13:55:15 Post procedure rhythm: unchanged. 13:55:18 Estimated blood loss: 5 ml 13:55:20 Post procedure instruction explained to patient.Patient verbalizes understanding. 13:55:20 Patient needs reinforcement of post procedure teaching. 13:55:35 Procedure type changed to Cath procedure, Diagnostic procedure, LHC, LHC w/Coronaries, Sedation Charges, Moderate Sedation up to 15 minutes 13:55:37 Procedure and supply charges have been captured, reviewed, submitted and are correct. 13:55:41 Procedure Complication : No complications 13:55:48 LH Findings: mild to moderate CAD (<70%) 13:55:49 Vital chart was stopped 13:55:51 Operative report dictated upon procedure completion. 13:55:52 See physician's report for complete and final results. 13:55:53 Report given to Pre/Post Procedure Room. 13:55:56 Patient transfered to Pre/Post Procedure Room with Stretcher. 13:55:58 Procedure ended. 13:55:58 Full Disclosure recording stopped 13:56:03 End room use (Document Last) Device Usage Item Name Manufacture Quantity Catalog Hospital Part Current Minimal L ot# / Number Charge Number Stock Stock Serial# Code ACIST Acist 1 [id number] [id number] 859811 795152 20 Syringe Medical (11063) Systems Inc Bag Microtek 1 2001S 351891 94855 696628 5 Decanter Medical Inc. () Medline Medline 1 [id number] 106934 24187 098879 5 Cath Pack ([id number]) ACIST Hand Acist 1 23888 143580 028053 809255 5 Control Medical (50811) Systems Inc ACIST Acist 1 21775 796903 832478 114470 5 Manifold Medical (49104) Systems Inc DIAGNOSTIC Cardinal 1 [id number] 139223 59909 436583 30 Multipack Health 5Fr catheter set (YE4578) Tegaderm 4 3M 1 1626W 406905 146120 354875 5 x 4 (1626W) SHEATH 5FR Terumo 1 MNA633 245914 361651 264807 5 [place] (APK698) EMERALD Cardinal 1 502-455 190649 343688 845716 5 Guide Wire Health (366-662) MULTIPACK Cardinal 1 498235 5 JL 4.0 5Fr Health catheter MULTIPACK Cardinal 1 087695 5 3DRC 5Fr Health catheter MULTIPACK Cardinal 1 615183 5 Pigtail 5 Health Fr catheter EXOSEAL 5Fr Cardinal 1 EX500 764797 577704 762876 10 (EX500) Health Signature Audit Alvord Stage Time Signature Unsigned Intra-Procedure 01/05/2020 Brandy Shankar 1:58:35 PM RT(R) Intra-Procedure 01/05/2020 Ramona Ricci 1:58:53 PM RN Intra-Procedure 01/05/2020 Marlo Ha 1:59:14 PM Juventino [facility] [address] [place] [address]
[~2020-01-05 11:29] MED LIST changes: +ATROVENT 0.02%2.5 ML UPD; +BETAPACE 80 MG80 MG PO; +BYSTOLIC5 MG PO; +K-TAB10 MEQ PO; +LASIX20 MG PO; +XARELTO20 MG PO
[2020-01-05 12:10] VITALS: BP 154/58; Ht 172.7 cm; Wt 118.2 kg
[2020-01-05 12:31] LABS: BASOPHILS 0.3 % (0-2); EOSINOPHILS 4.6 % (0-7); HEMATOCRIT 40.2 % (36.0-48.0); HEMOGLOBIN 12.2 g/dL (12-16); IMMATURE GRANULOCYTES 0.3 % (0-5); LYMPHOCYTES 32.4 % (15-50); MCHC 30.3 g/dL (31.0-37.0); MCV 92.2 fL (80.0-100.0); MEAN PLATELET VOLUME 11.3 fL (7.4-10.4); MONOCYTES 7.2 % (2-11); NEUTROPHILS 55.2 % (40-80); RBC 4.36 10x6/uL (4.00-5.40); WBC 6.8 10x3/uL (4.8-10.8)
[2020-01-05 12:34] LABS: PLATELET COUNT 172 10x3/uL (130-400)
[2020-01-05 12:47] LABS: CALCIUM 8.8 mg/dL (8.5-10.1); CHOL - HDL RATIO 4.8 ratio (2.3-4.1); LDL-HDL RATIO 3.2 ratio (1.5-3.5)
--- NOTE | 2020-01-05 14:10 | NUR ---
PT ARRIVED BY STRETCHER. PLACED ON MONITORS. ASSESSMENT COMPLETED. VSS AT THIS TIME.
--- NOTE | 2020-01-05 14:25 | NUR ---
RIGHT GROIN DRESSING C/D/I. NO S/S OF HEMATOMA NOTED. CALL LIGHT WITHIN REACH. VSS. NO NEEDS AT THIS TIME.
--- NOTE | 2020-01-05 14:55 | NUR ---
RIGHT GROIN DRESSING C/D/I. NO S/S OF HEMATOMA NOTED. CALL LIGHT WITHIN REACH. VSS AT THIS TIME. PT RESTING COMFORTABLY.
--- NOTE | 2020-01-05 15:10 | NUR ---
RIGHT GROIN DRESSING C/D/I. NO S/S OF HEMATOMA NOTED. CALL LIGHT WITHIN REACH. HEAD OF BED INC TO 30 DEGREES. TOLERATED WELL. SET UP WITH SANDWICH TRAY AND DRINK. NO OTHER NEEDS AT THIS TIME.
--- NOTE | 2020-01-05 16:00 | NUR ---
RIGHT GROIN DRESSING C/D/I. NO S/S OF HEMATOMA NOTED. PIV D/C'D WITH CATH TIP INTACT. TOLERATED WELL. DISCUSSED DISCHARGE INSTRUCTIONS WITH PT. SHE VOICED UNDERSTANDING. PT INSTRUCTED TO GET UP AND DRESSED AT THIS TIME. NO ASSISTANCE NEEDED.
--- NOTE | 2020-01-05 16:05 | NUR ---
PT AMBULATED TO RESTROOM. VOIDED WITHOUT DIFFICULTY. STEADY GAIT NOTED.
--- NOTE | 2020-01-05 16:15 | NUR ---
RIGHT GROIN DRESSING C/D/I. NO S/S OF HEMATOMA NOTED. PT TAKEN DOWN TO VEHICLE BY WHEELCHAIR. NO S/S OF DISTRESS NOTED. ALL BELONGINGS AND PAPERWORK IN HAND. DISCUSSED DISCHARGE INSTRUCTIONS WITH PT'S DAUGHTER. SHE VOICED UNDERSTANDING.
--- NOTE | 2020-01-06 09:08 | OP ---
PATIENT NAME: JASS KEY MEDICAL RECORD: [id number] :41 LOCATION:D.CAT ADMISSION DATE: SURGEON: DANNIELLE MILIAN MD DATE OF OPERATION: 01/05/2020 PROCEDURE: Left heart catheterization, selective coronary angiography, right femoral artery approach. CATHETERS: A 5-Mongolian sheath, 5/4 left and right Petros, 5/4 pig. The procedure was well tolerated. The patient was returned to the díaz. Sheath removed. ExoSeal device was placed. FINDINGS: Left ventriculography in 30-degree EKYES view: Normal wall motion, normal systolic function. CORONARY ANATOMY: LEFT MAIN: Left main is free of disease. LAD: Area of previous stenting is widely patent. No evidence of restenosis. No progression of [place] disease. CIRCUMFLEX: Small circumflex, free of disease. RIGHT CORONARY ARTERY: Dominant artery, gives rises to PDA, free of disease. IMPRESSION: No evidence of restenosis. No progression of [place] disease. LV function remains normal. TRANSINT:[id number] Voice Confirmation ID: [id number] DOCUMENT ID: [id number] DANNIELLE MILIAN MD at 0908 CC: [id number] DICTATION DATE: 01/05/20 1407 CHOP SAW OPERATOR: 01/05/20 1455 DEP CLI 01/05/20 [place] [id number] [place] [address]
== END 2020-01-05 16:15 | disposition home or self-care (01) ==
LOC: D.CATH 11:29
PROVIDERS: ATTEND Internal Medicine Interventional Cardiology
DX: I48.91 Unspecified atrial fibrillation (principal); I25.10 Atherosclerotic heart disease of native coronary artery without angina pectoris; I10 Essential (primary) hypertension